=== PATIENT | male | born 1930 | race Caucasian/White ===

== ENCOUNTER → 2016-10-13 | Outpatient (CLI) | payer MEDICARE, MEDICAID ==
[~2016-10-13] MED LIST: FLOMAX0.4 MG PO
== END | disposition disaster alternative care site (69) ==
LOC: GRAD 15:31
DX: R06.02 Shortness of breath (principal); J98.9 Respiratory disorder, unspecified; J92.9 Pleural plaque without asbestos; J98.09 Other diseases of bronchus, not elsewhere classified; I70.90 Unspecified atherosclerosis; K44.9 Diaphragmatic hernia without obstruction or gangrene

== ENCOUNTER 2017-01-15 18:21 | Inpatient (IN) | payer MEDICARE, MEDICAID, OTHER ==
[~2017-01-15] VITALS: Ht 167.6 cm; Wt 54.6 kg
--- NOTE | ~2017-01-15 | CON ---
PATIENT'S NAME: ROSITA MARKS [facility] AGE: 87 Y [address] ROOM: [address] [address] LOCATION: GPCU ADMIT DATE: 01/15/2017 Consultation DISCHARGE DATE: 01/26/2017 FAMILY PHYSICIAN: Physician, Unknown ATTENDING PHYSICIAN: Olga Bañuelos DATE OF CONSULTATION: 01/18/2017 REFERRING PHYSICIAN: Samantha Devine MD CHIEF COMPLAINT: Palliative care referral for goals of care conversation. HISTORY OF PRESENT ILLNESS: The patient is an 87-year-old male who is admitted with a 3-4 day history of weakness and difficulties with ADLs as well as a one month history of increasing shortness of breath. The patient has a history of BPH and COPD. He is a lifelong smoker. He lives at home alone with a stepson who checks in from time to time. He is still driving some on his own as well as cooking and trying to manage his house. His family has been trying to get some help through [facility]. The patient generally follows with Dr. Goddard, but per his notes, the patient is not very compliant with his medications. During this hospitalization, the patient has been found to be anemic and be in acute congestive heart failure. The patient also states multiple times during my visit that he just wants to go home and does not want any of this done. Given this, Palliative Care has been consulted to assist with goals of care conversation. PREVIOUS OPERATIONS: Prostate surgery. PAST MEDICAL HISTORY: 1. COPD. 2. BPH. MEDICATIONS: Flomax 0.4 mg p.o. daily. ALLERGIES: NO KNOWN ALLERGIES. SOCIAL HISTORY: The patient is . No alcohol use. He is a lifelong smoker. He has a stepson who lives nearby and assists with cares as needed. FAMILY HISTORY: PATIENT'S NAME: ROSITA MARKS [facility] AGE: 87 Y [address] ROOM: [id number] [place] [id number] LOCATION: GPCU ADMIT DATE: 01/15/2017 Consultation DISCHARGE DATE: 01/26/2017 FAMILY PHYSICIAN: , Unknown ATTENDING PHYSICIAN: Olga Bañuelos His mother of a heart attack, and his father of alcohol abuse. REVIEW OF SYSTEMS: GENERAL: Appetite has been down. Family reports there has been some weight loss, but they are not aware of the amount. Positive for fatigue. Denies fever, chills, or night sweats. HEENT: No changes in vision or hearing. No headaches. No sinus congestion. RESPIRATORY: Reports shortness of breath at rest and reports this is his baseline. Reports that his shortness of breath is almost near his baseline currently. He does get increasingly short of breath with activity and takes a few minutes to recover. CARDIOVASCULAR: Denies chest pain, pressure. He does occasionally have palpitations. Denies orthopnea. No peripheral edema. GASTROINTESTINAL: No nausea, vomiting. No diarrhea but has issues with chronic constipation. No blood in the stool. No difficulties chewing or swallowing. GENITOURINARY: At times has problems starting his stream. Denies dysuria. MUSCULOSKELETAL: No joint swelling or back pain, has had a couple falls. No injuries. Does use a cane, sometimes a walker to get around at home. NEUROLOGICAL: Denies numbness or tingling. No dizziness, syncope, or seizures. INTEGUMENTARY: No rashes or open areas. HEMATOLOGICAL: No new bruising or bleeding. PSYCHIATRIC: Denies feeling overtly depressed or anxious. Denies insomnia. PHYSICAL EXAMINATION: VITAL SIGNS: Blood pressure 120/55, heart rate 83, temperature 98.0, respirations 24, O2 saturation 92% on 2 L. GENERAL: Reveals a frail-appearing elderly white male who is lying in the hospital bed, does not appear to be in any acute distress. He is alert and oriented x3. HEENT: Normocephalic, atraumatic. Pupils are equal and reactive to light. Sclerae are nonicteric. Conjunctivae pink. Tongue and mucous membranes are moist and pink. CARDIOVASCULAR: Heart tones are irregularly irregular. I am able to note a murmur. RESPIRATORY: Respirations are regular and nonlabored at rest. Lung sounds, there are few crackles at the bases. GASTROINTESTINAL: Abdomen is soft and nontender. Bowel sounds are present. No masses or organomegaly. MUSCULOSKELETAL: No significant joint deformities. Peripheral pulses are 1+ bilaterally. No clubbing, cyanosis, or edema. SKIN: Warm and dry. No unusual lesions or rashes. NEUROLOGICAL: Grossly intact. MENTAL STATUS: Unremarkable. PSYCHIATRIC: Appropriate mood and affect for situation. PATIENT'S NAME: SELINA, ROSITA R [facility] AGE: 87 Y [address] ROOM: [id number] [place], [place] [address] LOCATION: GPCU ADMIT DATE: 01/15/2017 Consultation DISCHARGE DATE: 01/26/2017 FAMILY PHYSICIAN: Physician, Unknown ATTENDING PHYSICIAN: Olga Bañuelos IMPRESSION AND PLAN: 1. Weakness: PT, OT, and cardiac rehab are on board. 2. Fatigue. 3. Code status. The patient is a full code. Did discuss code status with the patient, and he states that if his heart stops to let God have him, do not keep me alive on machines, but given the fact that he most likely will plan to have a colonoscopy as well as a possible heart catheterization during this hospitalization, will leave as a full code until after these procedures. The patient tells me that he just recently completed an advance directive and ndure-by-eernixxg paperwork with the [facility] on [facility], and I have asked him to have his family bring a copy so that we can place it on his chart. 4. Discussed with the patient and his xonibaaodsjn-ip-kaq, Lisandra, his multiple comorbidities as well as the proposed procedures to include a colonoscopy and/or a heart catheterization. We discussed the risks, benefits, and alternatives to these given his advancing age and comorbidities. Also discussed with the patient the importance of med compliance should he choose to have these procedures or not versus more of a medical management approach where he would still need to be medicine compliant. Discussed with the patient and his family, home health care at home and [facility] as well as briefly discussed what hospice services would be like. Also talked about the possibility of needing a short stay at a residential facility, though the patient is very adamant that he just wants to go home. Also discussed and provided education to the patient on disease exacerbation as well as disease trajectory over time and how things would look for him. At this point, the patient is not sure that he wants to undergo any procedures and wants to visit more with his family in regard to this. We will plan to follow up in the next day or so on further goals of care conversation with the patient and his family. I answered the patient and family's questions to their satisfaction. The patient reports that his primary goal is to get back home to his dog. Total visit was 75 minutes, greater than 50% of this time was spent providing education and counseling on comorbidities, disease process, and goals of care. Thank you for allowing me assist this patient and family. ALMA ROSA MIT[employer] SAFETY PROGRAM COORDINATOR FOR MAGALI APNIAGUA MD DLS/modl PATIENT'S NAME: ROSITA MARKS [facility] AGE: 87 Y [address] ROOM: [place] [address] [facility] ADMIT DATE: 01/15/2017 Consultation DISCHARGE DATE: 01/26/2017 FAMILY PHYSICIAN: Physician, Unknown ATTENDING PHYSICIAN: Olga Bañuelos /[id number] d: 01/26/171939 t: 02/01/17 1336, CONSULTATION REPORT
--- NOTE | ~2017-01-15 | ECHO ---
Transthoracic Echocardiography Report (TTE) Demographics Patient Name ROSITA MARKS Date of Study 01/16/2017 Patient Number [id number] Visit Number [id number] Date of 1930 Room Number G6331 Gender Male Number Age 87 year(s) Referring Sausage Machine Operator Gema RVT, RDCS Physician Ernestina Physician Interpreting Sybil Singh MD Chemicals Distiller Physician Supervising Ordering Sarmad Woods MD, MD/MLP Physician Nurse Stress Animal Husbandry Teacher Conclusions Contractility Score Summary Hypokinesis of the Mid anterior, the Mid troy-septal, the Apical septal and the Apical anterior segments. Summary The estimated left ventricular ejection fraction is 35%.Moderate asymmetric septal left ventricular hypertrophy.Normal internal dimension.There is severe inferior hypokinesia.Rest of LV is moderately hypokinetic. Mild biatrial dilatation with increased LA and RA pressures. Mild RV hypokinesis. Mild-moderate mitral regurgitation by color Doppler. There is mild aortic stenosis by the Continuity Equation. The peak velocity is 2.04 m/s, the mean gradient is 12 mmHg, and the valve area based on the continuity equation is 1.27 cm2. Moderate tricuspid regurgitation by color Doppler. There is severe pulmonary hypertension. The pulmonary pressure (RVSP) is 67 mmHg. TDS with off axis views. Procedure Type of Study TTE procedure:2D Echocardiogram, M-Mode, Doppler , Color Doppler. Procedure Date Date: 01/16/2017 Start: 08:57 AM Study Location: Inpatient Portable Technical Quality: Adequate visualization Indications:Shortness of breath. Additional Indications:non -stemi Appropriate Use Criteria: 9 Patient Status: Routine HR: 92 bpm BP: 148/70 mmHg M-Mode/2D Measurements LV Diastolic Dimension: 4.55 cm LV Systolic Dimension: 3.66 cm LV Septum Diastolic: 1.77 cm LV PW Diastolic: 1.36 cm AO Root Dimension: 2.9 cm Cardiac Output: 3.95 l/min AV Cusp Separation: 1.2 cm RV Diastolic Dimension: 2.2 cm LA volume: 41 ml LVOT: 2.1 cm RV Base: 3.63 cm LVOT VTI: 12.4 cm RV Mid: 3.39 cm LV Stroke volume: 42.93 ml TAPSE: 1.77 cm TDI-S': 11.3 cm/s Doppler Measurements AV Peak Velocity: 2.04 m/s MV Peak E-Wave: 1.32 m/s AV Peak Gradient: 16.65 mmHg MV Peak A-Wave: 0.75 m/s AV Mean Gradient: 12 mmHg MV E/A Ratio: 1.77 LVOT Peak Velocity: 0.61 m/s MV P1/2t: 49 msec TR Gradient:60.22 mmHg PV Peak Velocity: 0.89 m/s Estimated RAP:7 mmHg PV Peak Gradient: 3.15 mmHg Estimated RVSP: 67 mmHg Estimated PASP: 67.22 mmHg E' Septal Velocity: 0.06 m/s A' Septal Velocity: 0.04 m/s E' Lateral Velocity: 0.08 m/s A' Lateral Velocity: 0.05 m/s Findings Left Ventricle Moderate asymmetric septal left ventricular hypertrophy.Normal internal dimension,WM and EF. Right Ventricle Normal right ventricle structure and mildly reduced function. Left Atrium The left atrium is mildly dilated. Increased LA pressures. Right Atrium The right atrium is mildly dilated. Increased RA pressures. Mitral Valve Mild-moderate mitral regurgitation by color Doppler. Aortic Valve The aortic valve is moderately sclerotic. There is mild aortic stenosis by the Continuity Equation. The peak velocity is 2.04 m/s, the mean gradient is 12 mmHg, and the valve area based on the continuity equation is 1.27 cm2. Tricuspid Valve Moderate tricuspid regurgitation by color Doppler. There is severe pulmonary hypertension. The pulmonary pressure (RVSP) is 67 mmHg. Pulmonic Valve Normal pulmonic valve structure and function. Pericardial Effusion No evidence of pericardial effusion. Miscellaneous Visualized portions of the aortic root and ascending aorta appear normal in size. Pleural Effusion No evidence of pleural effusion. Contractility Score LV regional wall motion:(0-Non visualized 1-Normal 2-Hypokinesis 3-Akinesis 4-Dyskinesis 5-Aneurysm) Signature dtt: Samantha Devine dtd: 01/16/17 0857 Physician Self Edit
--- NOTE | ~2017-01-15 | HP ---
PATIENT'S NAME: ROSITA MARKS [facility] AGE: 87 Y [address] ROOM: [place] [address] LOCATION: GPCU ADMIT DATE: 01/15/2017 History & Physical DISCHARGE DATE: FAMILY PHYSICIAN: PHYSICIAN, UNKNOWN ATTENDING PHYSICIAN: MARV LI DATE OF SERVICE: CHIEF COMPLAINT: Feeling weak. HISTORY OF PRESENT ILLNESS: This is an 87-year-old gentleman with a past medical history of BPH and chronic respiratory failure diagnosed in the past, not much records available, presented to the emergency department by private vehicle stating that he has been feeling weak for past three or four days, unable to do his ADLs, no specific weakness mentioned in any of the extremities, associated with some baseline shortness of breath; did not complain of any chest pain, any palpitation, any cough; did endorse having dizziness sometimes not associated with fever, chills, any diarrhea, or constipation. Does endorse having abdominal pain which he states has been there for many many weeks now. He said that he has been urinating okay, no burning reported. Did not report any swelling in the legs. He is not one of the greatest historians. REVIEW OF SYSTEMS: All other systems were reviewed and were negative except as mentioned in the HPI. ALLERGIES: NO KNOWN DRUG ALLERGIES. PAST MEDICAL HISTORY: 1. BPH. 2. Chronic respiratory failure secondary to COPD. MEDICATIONS: Terazosin. FAMILY HISTORY: Negative for any coronary artery disease. SOCIAL HISTORY: A lifelong smoker. No alcohol or drug abuse. [place]. PATIENT'S NAME: ROSITA MARKS [facility] AGE: 87 Y [address] ROOM: [address] [address] LOCATION: GPCU ADMIT DATE: 01/15/2017 History & Physical DISCHARGE DATE: FAMILY PHYSICIAN: PHYSICIAN, UNKNOWN ATTENDING PHYSICIAN: MARV LI PHYSICAL EXAMINATION: VITAL SIGNS: Blood pressure 149/77, respiratory rate of 20, saturating 94% on 1 to 2 L of oxygen, afebrile. GENERAL: No acute distress. Alert and oriented x3. HEENT: Head; atraumatic, normocephalic. Eyes; some erythema noted around the eye which he said is chronic. Oral cavity, mucous membranes moist. CARDIOVASCULAR: S1 and S2. No murmurs, gallops, or rubs. LUNGS: Bilateral crackles up to mid lung field. ABDOMEN: Soft, nontender, nondistended. Bowel sounds present. EXTREMITIES: Trace edema on the right side. PSYCH: Normal affect, mood, and speech. NEURO: Cranial nerves 2 through 12 intact. No motor or sensory deficit. SKIN: No blemishes or rashes noted. MUSCULOSKELETAL: No muscle tenderness or joint swelling noted. ENDOCRINE: No thyromegaly or lymphedema noted. LABORATORY AND IMAGING DATA: Chest x-ray was done in the emergency department which did show cardiomegaly as well as some vascular congestion more on the right side than the left side. EKG was done, which showed normal sinus rhythm, with no acute ST-T wave changes and poor R-wave progression in the anterior lead. Very interestingly, his troponin on the presentation was 0.7 which jumped in 2 hours to 1.2. ProBNP was elevated at 33,000. CPK level was 427 and 375. CBC was remarkable for hemoglobin of 8.2, with MCV of 87. BUN 47, creatinine 1.7, potassium 4.5. AST and ALT elevated at 451 and 468. ESR 34. INR is 1.5. UA is negative. EGFR of 36. ASSESSMENT: 1. Acute hypoxic respiratory failure. 2. Acute congestive heart failure. 3. Acute coronary syndrome. 4. Anemia, likely iron deficiency. 5. Acute kidney injury. 6. Increased liver enzymes. 7. Chronic respiratory failure. 8. Chronic obstructive pulmonary disease. PLAN: We are going to admit this patient. We did a bedside ultrasonography which did reveal reduced ejection fraction with dilated RV as well as LV. Dilatation of the both RA and LA was also noted. IVC is dilated, with poor inspiratory collapse. He looks like he is in florid heart failure. We will start diuresing this gentleman at this point. He will need a full echocardiography in the morning. No heparin will be instituted at this point PATIENT'S NAME: ROSITA MARKS [facility] AGE: 87 Y [address] ROOM: [place] [address] LOCATION: [facility] ADMIT DATE: 01/15/2017 History & Physical DISCHARGE DATE: FAMILY PHYSICIAN: PHYSICIAN, UNKNOWN ATTENDING PHYSICIAN: MARV LI because of the anemia. Cardiology consultation will be obtained. Anemia workup will be started. He never had his colonoscopy done. We will consult GI after the confirmation of iron deficiency anemia. We will monitor urine lytes. I think his renal failure is secondary to cardiorenal. His liver enzymes are elevated secondary to congestion of the liver. We are going to monitor this gentleman. He has high risk of deterioration in terms of his cardiovascular as well as respiratory status. I spent one hour in taking care of this patient, which involved direct patient care; history and physical; bedside ultrasonography; explaining the condition, prognosis, and the workup. The patient was very resistant to get admitted to the hospital. The patient is full code. MD USMAN HEATON/andressa /[id number] D: [id number] T: [id number] HISTORY & PHYSICAL
--- NOTE | ~2017-01-15 | DS ---
PATIENT'S NAME: ROSITA MARKS [facility] AGE: 87 Y [address] ROOM: [place] [address] LOCATION: GPCU ADMIT DATE: 01/15/2017 Discharge Summary DISCHARGE DATE: 01/26/2017 FAMILY PHYSICIAN: Physician, Unknown ATTENDING PHYSICIAN: Olga Bañuelos PRIMARY DIAGNOSES: 1. Non ST-elevation myocardial infarction. 2. Pmaga-pu-vknmlav hypoxic and hypercapnic respiratory failure. 3. Uzrrc-xd-kgfkyje systolic congestive heart failure. 4. Severe iron deficiency anemia. 5. Acute kidney injury. 6. Generalized weakness. 7. Benign prostatic hyperplasia. 8. Essential hypertension. 9. Paroxysmal atrial fibrillation. OPERATIONS OR PROCEDURES: CT scan of the abdomen and pelvis on 01/16/2017 demonstrated left renal cysts, emphysematous changes at the bases of the lungs with bilateral pleural thickening, no acute intraabdominal findings. Echocardiogram performed on 01/16/2017 revealed an ejection fraction of 35%, moderate biatrial dilatation, mild aortic stenosis, and severe pulmonary hypertension with an RVSP of 67 mmHg. HISTORY OF PRESENTING ILLNESS AND REASON FOR ADMISSION: Please refer to the H and P dictated on 01/15/2017. HOSPITAL COURSE: The patient was admitted to the hospital as noted above with a presumptive diagnosis of ifoai-we-hccxbpo hypoxic respiratory failure. He was found to have atrbb-sv-ntsdqme congestive heart failure. He did have paroxysms of atrial fibrillation over the course of his hospital stay. Non-ST elevation UT was identified. Cardiology was consulted. Gastroenterology was also consulted. The patient was found to have severe iron deficiency anemia. He did receive IV iron supplementation. His medical therapy was optimized. Eventually and after consultation with Cardiology, it was decided not to pursue intervention. He was recommended for medical management. Palliative Care was also involved and there was some consideration for hospice care. The patient requested no further interventions and no further hospitalizations. PATIENT'S NAME: ROSITA MARKS [facility] AGE: 87 Y [address] ROOM: [place] [address] LOCATION: GPCU ADMIT DATE: 01/15/2017 Discharge Summary DISCHARGE DATE: 01/26/2017 FAMILY PHYSICIAN: , Unknown ATTENDING PHYSICIAN: Olga Bañuelos With the assistance of care management, arrangements were made for him to be discharged to nursing facility for skilled care and restorative cares, but no further hospitalization. The patient expressed that if his condition were to deteriorate, he would want for hospice care. DISCHARGE INSTRUCTIONS: DIET: Cardiac prudent as tolerated. ACTIVITY: As tolerated. MEDICATIONS: 1. Aspirin 325 mg p.o. daily. 2. Atorvastatin 40 mg p.o. at bedtime. 3. Protonix 40 mg p.o. daily. 4. Metoprolol 12.5 mg p.o. b.i.d. 5. Lasix 20 mg p.o. q.a.m. 6. Spironolactone 25 mg p.o. daily. 7. Flomax 0.4 mg p.o. daily. 8. DuoNeb b.i.d. and q.4 hours p.r.n. 9. Acetaminophen 650 mg p.o. q.4 hours p.r.n. pain or fever. FOLLOWUP: He will follow up with Dr. Devine in 2 weeks and continued followup by Palliative Care at the senior living. He will follow up with his primary care provider in 7 to 10 days. CONDITION ON DISCHARGE: Fair. Total time spent on discharge process 45 minutes. MD KANDI BONILLA/andressa /[id number] d: 01/27/17 0358 t: 01/30/17 1725, DISCHARGE SUMMARY
--- NOTE | ~2017-01-15 | CON ---
PATIENT'S NAME: ROSITA MANRIQUEZ [facility] AGE: 87 Y [address] ROOM: [place] [address] LOCATION: GPCU ADMIT DATE: 01/15/2017 Consultation DISCHARGE DATE: FAMILY PHYSICIAN: PHYSICIAN, UNKNOWN ATTENDING PHYSICIAN: MARV LI DATE OF CONSULTATION: 01/16/2017 REFERRING PHYSICIAN: Samantha Devine MD This is a patient of hospitalist. Dear Colleagues: Thank you for asking me to see Mr. Manriquez who was brought in by his stepson to the hospital because he has been weak for the past 4 days. He lives alone and has been noticing worsening shortness of breath for about a month or so. For the past two weeks, he has noticed some aches in his arms bilaterally and he thought that is from laying on the shoulders. They seem to come and last him some couple hours and spontaneously resolved. He has no other chest pains, but his troponins were elevated and his EKG showed that he was in atrial fibrillation with variable ventricular response and left bundle-branch block. That is the main reason for consultation. He has also been progressively getting weaker and much worse in the last four days. He has been in functional class III for the past month or so. He denies any paroxysmal nocturnal dyspnea or orthopnea. He has some intermittent lightheadedness and dizziness, which are short lived. He has never had a syncopal spell. There is no history of palpitations or ankle swelling. The patient denies hypertension or diabetes. His cholesterol apparently is not increased. He smokes two packs a month. There is no family history of premature coronary artery disease. He denies VT or angina or nitroglycerin use. He denies rheumatic fever, heart murmur, heart failure. He thinks that his heart has been in atrial fibrillation for the past month or so. MEDICATIONS: Tamsulosin 0.4 mg a day. ALLERGIES: NONE. PATIENT'S NAME: ROSITA MANRIQUEZ [facility] AGE: 87 Y [address] ROOM: [place] [address] LOCATION: GPCU ADMIT DATE: 01/15/2017 Consultation DISCHARGE DATE: FAMILY PHYSICIAN: PHYSICIAN, UNKNOWN ATTENDING PHYSICIAN: KHALID,FAIR A PAST MEDICAL HISTORY: Hernia surgery. SOCIAL HISTORY: The patient is a cabinetmaker. He is . He denies abusing alcohol or recreational drugs. His appetite is good. Weight stays about the same. Sleep is poor. FAMILY HISTORY: No premature coronary artery disease. REVIEW OF SYSTEMS: A 12-point review of systems revealed the following positives. 1. Sinus drainage. 2. Corrective lenses. 3. Wheezing. 4. CKD with nocturia x4. PHYSICAL EXAMINATION: VITAL SIGNS: His blood pressure is 130s/80s, heart rate is in the 80s and irregular, respirations 18, afebrile. HEENT: Normal. NECK: Supple with no JVD, thyromegaly, lymphadenopathy, or carotid bruit. PMI is not well located. First and second heart sounds are irregular. There are no added sounds or murmurs. CHEST: Clear to auscultation. ABDOMEN: Soft and nontender. EXTREMITIES: Reveal no edema. CENTRAL NERVOUS SYSTEM: Intact. ASSESSMENT: An 87-year-old male patient with non ST-segment elevation VT. His EF today by echocardiogram is 35%. RECOMMENDATION: Low-dose diuresis. Put him on aspirin and heparin. His hemoglobin is 8.2, so we will watch his Hemoccult stools and his hemoglobin closely. We will check his bladder scan for residual urine. He may need cardiac catheterization, but overall, he seems fairly weak and I am not sure how far he wants to take this. In the meantime, I will maximize his medications. Given his wall motion abnormalities, this is most likely coronary artery disease related congestive heart failure. Again, I appreciate this opportunity to participate in the care of Mr. Manriquez. PATIENT'S NAME: ROSITA MANRIQUEZ [facility] AGE: 87 Y [address] ROOM: [place] [address] [facility] AD[facility] DATE: 01/15/2017 Consultation DISCHARGE DATE: FAMILY PHYSICIAN: PHYSICIAN, UNKNOWN ATTENDING PHYSICIAN: MARV LI MD KELSEA CANNON/andressa /[id number] d: 01/17/17 0055 t: 01/17/17 08, CONSULTATION REPORT
--- NOTE | ~2017-01-15 | ER ---
PATIENT'S NAME: ROSITA MARKS [facility] AGE: 87 Y [address] ROOM: [place] [id number] LOCATION: GPCU ADMIT DATE: 01/15/2017 ER/Outpatient Report DISCHARGE DATE: FAMILY PHYSICIAN: PHYSICIAN, UNKNOWN ATTENDING PHYSICIAN: MARV BAÑUELOS Time of Arrival: Admission date and time documented on the medical record. Time of Evaluation: I saw the patient at 1840 hours. CHIEF COMPLAINT: Generalized weakness, nausea, and abdominal pain. HISTORY OF PRESENT ILLNESS: The patient is an 87-year-old male, who over the past 3 days has had increasing generalized weakness. He has had some nausea, but no vomiting. Had 1 diarrhea stool. Denies any blood in the stool or black tarry stools. No constipation. Does have some kind of vague generalized abdominal pain. No chest pain or shortness of breath. No headache or eyes, ears, nose, throat, neck, or spine pain. No fall or trauma. No recent cough, cold, flus, fever, chills, or sweats. No lightheadedness, dizziness, syncope, or near syncope. No joint or muscle swelling, redness, or pain. No skin eruptions or rash. No history of neuro changes, psych issues, or endocrine problems. HOME MEDICATIONS: See attached medication list. ALLERGIES: NONE. SOCIAL HISTORY: The patient smokes a pack of cigarettes every couple of weeks. Nondrinker. SIGNIFICANT PAST MEDICAL HISTORY: Hypertension, tobacco and alcohol abuse, pneumonia, benign prostatic hypertrophy, hyponatremia, sepsis, and COPD. OPERATIONS: Herniorrhaphy x2. REVIEW OF SYSTEMS: All systems reviewed by me are negative with the exception of those discussed in the history of present illness. PHYSICAL EXAMINATION: VITAL SIGNS: Temperature 97.7, tympanic; pulse 96; respirations 20; blood PATIENT'S NAME: ROSITA MARKS [facility] AGE: 87 Y [address] ROOM: [address] [address] LOCATION: GPCU ADMIT DATE: 01/15/2017 ER/Outpatient Report DISCHARGE DATE: FAMILY PHYSICIAN: PHYSICIAN, UNKNOWN ATTENDING PHYSICIAN: MARV BAÑUELOS pressure 133/68; and O2 saturation on room air is 95%. HEAD: Normocephalic. EYES, EARS, NOSE, AND THROAT: Clear. Mucous membranes little dry. NECK: No nuchal rigidity. No thyromegaly or cervical adenopathy. No tenderness. SPINE: Nontender. No deformity. LUNGS: Decreased breath sounds diffusely, some basilar rales. HEART: Regular. Pulses are palpable. The patient is mildly tachypneic. ABDOMEN: Soft. Some tenderness in the right upper quadrant over the liver area. No organomegaly or abnormal masses palpable. No true guarding or rigidity. No rebound tenderness. Bowel tones present. No CVA tenderness. EXTREMITIES: No peripheral edema, cyanosis, or deformity. NEUROVASCULAR: Intact. SKIN: Clear. No skin eruptions or rash. Does have some bruising around the right eye. He did kind of trip and fall injuring his right periorbital area several days ago. LABORATORY DATA AND X-RAYS: EKG x2, 2 hours apart showed sinus rhythm. Occasional ectopic, poor R-wave progression suggestive of some anterior LAD problems. Chest x-ray shows cardiomegaly, increased vascular congestion with some chronic scarring. We will review x-ray with the radiologist. Laboratory: Urine shows 0 to 2 whites, negative reds, rare epithelial cells, negative bacteria, negative nitrites on dipstick. CMS was normal except for an elevated glucose of 109, low calcium of 8.4, elevated BUN of 46, elevated creatinine of 1.7, low GFR of 36, AST was elevated at 451, ALT was elevated at 468. Magnesium was normal at 2.3. Amylase and lipase were normal. Acetone level was elevated at 8.1. CPK initially was elevated at 427, 2-hour CPK dropped to 375. CK-MB initially was 8.8, 2-hour CK-MB was 8.6. Troponin initially was 0.783, elevated to 1.24 after 2 hours. CRP was elevated at 2.18. Procalcitonin was 0.06. Lactate was 2.7. Free T4 and TSH were normal. ProBNP was elevated at 33,235. Venous pH was 7.4. EMERGENCY DEPARTMENT COURSE: Did give the patient some IV fluids, which did increase his alertness. We did shut it down when we found that he had some congestive heart failure pattern and low cardiac output. IMPRESSION: 1. Acute coronary syndrome. Possible vnh-GY-skturdeoy myocardial infarction. The patient has elevated cardiac enzymes, CK-MB and troponin. 2. Congestive heart failure. The patient has cardiomegaly and increased vascular congestion on chest x-ray. His BNP is 33,000. He has elevated PATIENT'S NAME: ROSITA MARKS [facility] AGE: 87 Y [address] ROOM: [place] [address] LOCATION[facility] ADMIT DATE: 01/15/2017 ER/Outpatient Report DISCHARGE DATE: FAMILY PHYSICIAN: PHYSICIAN, UNKNOWN ATTENDING PHYSICIAN: MARV BAÑUELOS liver enzymes. 3. Acute kidney failure with elevated BUN, creatinine and low GFR. 4. Chronic obstructive pulmonary disease with some respiratory failure. The patient does have a history of tobacco abuse. 5. Anemia with a hemoglobin of 8.2 and a hematocrit of 25.9. Etiology uncertain at this time. 6. Elevated pro-time, INR. 7. History of hypertension. 8. History of tobacco and alcohol abuse. 9. Past history of sepsis. 10. History of benign prostatic hypertrophy. PLAN: I did discuss this patient with Dr. Bañuelos, hospitalist. Dr. Bañuelos came down to the emergency room to evaluate the patient. We will admit the patient for inpatient hospital admission. The patient will be admitted for further evaluation and treatment, especially for his anemia, heart problems, acute kidney failure and his respiratory problems. Discussion ensued with the patient concerning my findings and recommendation, he understands. Accumulated critical care time 40 minutes. MD LUISA VALADEZ/modl /[id number] d: 01/16/17154 t: 01/16/[id number], OUTPATIENT REPORT
--- NOTE | ~2017-01-15 | CON ---
PATIENT'S NAME: LIU MANRIQUEZ [facility] AGE: 87 Y [address] ROOM: [place] [address] LOCATION: GPCU ADMIT DATE: 01/15/2017 Consultation DISCHARGE DATE: FAMILY PHYSICIAN: PHYSICIAN, UNKNOWN ATTENDING PHYSICIAN: MARV LI DATE OF CONSULTATION: 01/16/2017 REFERRING PHYSICIAN: Samantha Devine MD REASON FOR CONSULT: Anemia. HISTORY OF PRESENT ILLNESS: Liu Manriquez is an 87-year-old male who was admitted through emergency room in view of generalized weakness and increasing shortness of breath. The patient was found to be anemic with a low hemoglobin of around 8. Therefore, GI consult was requested. The patient denies any obvious problems with melena, rectal bleeding, or dysphagia. The patient is a very poor historian and was also found to have emphysema, cardiomegaly, and high troponin values, as well as Rapid Response was called in view of uncontrolled atrial fibrillation. At the present time, he seems to be doing better and is tolerating his breakfast. He has not had any previous endoscopic evaluation. There is unspecific amount of weight loss. PAST MEDICAL HISTORY: Benign prostatic hypertrophy and COPD. PAST SURGICAL HISTORY: None known. MEDICATIONS: Medications on admission included terazosin. Current medications are reviewed. SOCIAL HISTORY: Negative alcohol use. He does smoke cigarettes. [place] REVIEW OF SYSTEMS: Not available in view of the patient's poor communication and health issues. PHYSICAL EXAMINATION: GENERAL: An elderly, frail-looking man in no acute distress. Afebrile. VITAL SIGNS: Stable as noted in nurse's sheet. PATIENT'S NAME: LIU MANRIQUEZ [facility] AGE: 87 Y [address] ROOM: [place] [address] LOCATION: GPCU ADMIT DATE: 01/15/2017 Consultation DISCHARGE DATE: FAMILY PHYSICIAN: PHYSICIAN, UNKNOWN ATTENDING PHYSICIAN: MARV LI HEENT: Nonicteric sclerae. Pupils round and reactive. Atraumatic and normocephalic. NECK: Supple. No palpable nodes. No thyromegaly. CHEST: Bilateral crackles at the bases. HEART: S1 and S2 normal. ABDOMEN: Soft and nondistended without palpable masses. There is mild diffuse tenderness. RECTAL: Not done. NEUROLOGIC: Awake and alert without any focal deficit. EXTREMITIES: No edema. LABORATORY DATA: Chest x-ray and CT scan of the abdomen revealing cardiomegaly and changes of emphysema. Liver function tests are mildly elevated with AST of 450 and ALT of 460. Hemoglobin down to 8.2. MCV 87. Creatinine 1.7. ASSESSMENT AND PLAN: An 87-year-old male with multitude of comorbidities with high troponin values, cardiomegaly, emphysema, and associated anemia of unknown origin. The patient has not had any previous gastrointestinal evaluations; however, denies any obvious gastrointestinal symptoms, but is a very poor historian. I agree with further evaluation with upper and lower gastrointestinal endoscopy once his medical status has been stabilized. Thank you for this consult. JADE FITZGERALD MD AM/andressa /[id number] d: 01/16/17 1902 t: 01/31/17 1127, CONSULTATION REPORT
[2017-01-15 19:01] LABS: BICARBONATE 25.4 mmol/L (18.0-23.0); LACTATE 2.7 mEq/L (0.50-1.60); PCO2 41 mmHg (35-45); PO2 60 mmHg (80-90)
[2017-01-15 19:02] LABS: BASOPHIL % 0.5 %; EOSINOPHIL % 0.4 %; HEMATOCRIT 25.9 % (33.0-50.0); HEMOGLOBIN 8.2 g/dL (11.0-16.0); IMMATURE GRANULOCYTE % 0.5 %; LYMPHOCYTE # 1.5 K/uL (0.8-4.0); LYMPHOCYTE % 18.4 %; MCH 27.7 pg (27.0-34.0); MCHC 31.7 gm/dL (32.0-36.5); MCV 87.5 fl (83.0-98.0); MONOCYTE % 11.8 %; MPV 10.2 fl (9.4-12.4); NEUTROPHIL # (ANC) 5.6 K/uL (1.4-9.0); NEUTROPHIL % 68.4 %; NRBC % 0.2 /100WBC (0-0.00); PLATELET COUNT 230 K/uL (150-450); RBC 2.96 M/uL (3.50-5.50); RDW-CV 15.1 % (11.9-14.6); WBC 8.2 K/uL (4.0-11.0)
[2017-01-15 19:09] LABS: INR - (THERAPEUTIC) 1.52 (0.92-1.07); PTT 28 SECONDS (25-32)
[2017-01-15 19:22] LABS: ALBUMIN 3.3 gm/dL (3.5-5.0); CALCIUM 8.4 mg/dL (8.5-10.5); CREATININE 1.7 mg/dL (0.6-1.3); TOTAL BILIRUBIN 1.2 mg/dL (0.0-1.5); TOTAL PROTEIN 6.4 g/dL (6.0-8.4)
[2017-01-15 19:23] LABS: ANION GAP 14.5 (10.0-19.0); MAGNESIUM 2.3 mg/dL (1.8-2.6); POTASSIUM 4.5 mMol/L (3.7-5.1)
[2017-01-15 19:28] LABS: BILIRUBIN URINE NEGATIVE (NEGATIVE); BLOOD URINE NEGATIVE /UL (NEGATIVE); COLOR URINE YELLOW (YELLOW); GLUCOSE URINE NEGATIVE (NEGATIVE); KETONE URINE 5 mg/dL (NEGATIVE); LEUKOCYTES URINE 25 /UL (NEGATIVE); NITRITE URINE NEGATIVE (NEGATIVE); PROTEIN URINE 30 mg/dL (NEGATIVE); SPEC GRAVITY URINE 1.025 (1.003-1.035); TURBIDITY URINE CLEAR (CLEAR); UROBILINOGEN URINE 1 mg/dL (NORMAL)
[2017-01-15 19:34] LABS: BACTERIA URINE NEGATIVE (NEGATIVE); EPITHELIAL URINE RARE #/HPF (NEGATIVE); RBC URINE NEGATIVE #/HPF (NEGATIVE); WBC URINE 0-2 #/HPF (NEGATIVE)
[2017-01-15] MEDS ORDERED: FLOMAX0.4 MG PO (23:01)
[2017-01-16 01:58] LABS: BASOPHIL # 0.1 K/uL (0.0-0.2); BASOPHIL % 0.5 %; EOSINOPHIL % 0.2 %; HEMATOCRIT 25.8 % (33.0-50.0); HEMOGLOBIN 8.2 g/dL (11.0-16.0); IMMATURE GRANULOCYTE % 0.2 %; LYMPHOCYTE # 1.7 K/uL (0.8-4.0); MCH 28.5 pg (27.0-34.0); MCHC 31.8 gm/dL (32.0-36.5); MCV 89.6 fl (83.0-98.0); MONOCYTE # 1.1 K/uL (0.0-1.0); MONOCYTE % 11.1 %; MPV 10.1 fl (9.4-12.4); NEUTROPHIL # (ANC) 6.6 K/uL (1.4-9.0); NRBC % 0 /100WBC (0-0.00); PLATELET COUNT 207 K/uL (150-450); RBC 2.88 M/uL (3.50-5.50); RDW-CV 15.3 % (11.9-14.6); WBC 9.4 K/uL (4.0-11.0)
[2017-01-16 02:10] LABS: ANION GAP 14.3 (10.0-19.0); CALCIUM 8.3 mg/dL (8.5-10.5); CREATININE 1.8 mg/dL (0.6-1.3); POTASSIUM 4.3 mMol/L (3.7-5.1)
--- NOTE | 2017-01-16 05:27 | NUR ---
Patient admitted for NSTEMI. He reported feeling weak for the last few days and had a fall 4 days ago. He had one episode of diarrhea and reported feeling significantly weaker afterwards, so his stepson brought him to the ED. His cardiac enzymes were elevated but EKG was normal. He denied any chest pain. He was given 1L fluid bolus in ED. He is alert/oriented x3. NKDA. He lives at home by himself with his Rottweiler.
--- NOTE | 2017-01-16 05:30 | NUR ---
rSignificant Event: Patient is alert/oriented x3. Around 0130, patient stood up to use the urinal and then laid back in bed. At that time, his HR's went up as high as 206 and sustained > 150. Rapid response was initiated. EKG showed atrial fibrillation with RVR. Patient was asymptomatic during the entire episode. He was started on a cardizem drip at 5 mg/min and within 10 min he converted back to sinus rhythm. Dr. Bañuelos notified regarding rhythm change and he ordered to turn off cardizem drip. Cardizem drip has been off since 224. Otherwise, other vital signs have been stable and patient denies any pain. Doshi catheter placed for accurate I/O's and for urinary retention. He was given one dose of baby ASA and x1 dose of 80 mg IVP Lasix. 800 mL UOP. Follow up: Cardiology and GI consult this AM.
--- NOTE | 2017-01-16 13:50 | NUR ---
Significant Event:A/O X 3. Repositions self in bed. SBP 140's started on Metoprolol 12.5 mg this afternoon. ECHO completed this AM. GI consult this AM. Plans to GI "scope some day but not in the hospital, because his heart is too sick." O2 > 90'% on . Fair appetite, "I don't like to eat much more than a couple of rolls and some coffee everyday." Encouraged PO Nutrition and PO fluids. Bag bath given. Ecchymosis to right eye noted. Hands cold. Doshi patent with adequate amounts out. NO BM. Follow up:Home with home health.
[2017-01-16 20:09] LABS: BASOPHIL % 0.2 %; EOSINOPHIL % 0.3 %; HEMATOCRIT 23.7 % (33.0-50.0); IMMATURE GRANULOCYTE % 0.4 %; LYMPHOCYTE # 0.9 K/uL (0.8-4.0); LYMPHOCYTE % 9.2 %; MCV 88.8 fl (83.0-98.0); MONOCYTE % 10.1 %; MPV 10.1 fl (9.4-12.4); NEUTROPHIL # (ANC) 7.6 K/uL (1.4-9.0); NEUTROPHIL % 79.8 %; NRBC % 0.2 /100WBC (0-0.00); RBC 2.67 M/uL (3.50-5.50); RDW-CV 15.5 % (11.9-14.6); WBC 9.6 K/uL (4.0-11.0)
[2017-01-16 20:19] LABS: HEMOGLOBIN 7.6 g/dL (11.0-16.0); MCH 28.5 pg (27.0-34.0); MCHC 32.1 gm/dL (32.0-36.5); PLATELET COUNT 160 K/uL (150-450)
[2017-01-16 20:29] LABS: INR - (THERAPEUTIC) 1.39 (0.92-1.07); PROTIME 14.6 SECONDS (9.8-11.4)
[2017-01-17 02:04] LABS: HEMATOCRIT 23.5 % (33.0-50.0); HEMOGLOBIN 7.4 g/dL (11.0-16.0)
[2017-01-17 02:17] LABS: ANION GAP 10.8 (10.0-19.0); CALCIUM 7.8 mg/dL (8.5-10.5); CREATININE 1.7 mg/dL (0.6-1.3); POTASSIUM 3.8 mMol/L (3.7-5.1)
--- NOTE | 2017-01-17 04:49 | NUR ---
Significant events: Pt A/Ox3. VSS. SBP 90-110's, HR 80's. Sinus rhythm. On 2L/NC. No complaints of pain. Up 1PA. Heparin gtt at 700units/hr. H&H Q6 hour. GI and cardiology following. Slept well this shift.
[2017-01-17 08:24] LABS: HEMATOCRIT 23.4 % (33.0-50.0)
[2017-01-17 08:25] LABS: HEMOGLOBIN 7.1 g/dL (11.0-16.0)
[2017-01-17 13:58] LABS: HEMATOCRIT 24.2 % (33.0-50.0)
[2017-01-17 13:59] LABS: HEMOGLOBIN 7.5 g/dL (11.0-16.0)
--- NOTE | 2017-01-17 15:44 | NUR ---
Introduced self and role of care management to pt. He lives outside of [place] by himself and his dog. He does have a step son and step daughter in law who check on him and sometimes help if needed. He tells me he uses a 4 point cane while at home. He still drives at times. He states he is not the best at cleaning house or making meals. I did ask if he has been in touch with Medicaid to see if he would qualify for chore providers or if been in touch with [employer] and he has not. I did discuss the need for assisted or SHELTER and he states he wants to go home. I did mention [facility] to start out with and called Ana with [facility]. WIll continue to follow.
--- NOTE | 2017-01-17 16:23 | NUR ---
Significant Event: A/O X 3. DENIES PAIN. AFEBRILE. SHORT OF BREATH WITH ACTIVITY. 02 AT 2 LPM NC. SATS 95%. HR SA WITH FREQ. PAC'S. RATES IN 62-81. SBP 109-125. CURRY PATENT, ORANGE/YELLOW URINE. APPETITE GOOD AT LUNCH. HBG 7.4. GIVEN 1 UNIT PRBC'S. PT/OT EVAL/TREAT. Follow up: CONT. TO MONITER RESP. AND GI STATUS.
[2017-01-17 20:02] LABS: HEMATOCRIT 28.9 % (33.0-50.0); HEMOGLOBIN 9.3 g/dL (11.0-16.0)
[2017-01-18 02:36] LABS: BASOPHIL % 0.3 %; EOSINOPHIL # 0.2 K/uL (0.0-0.5); EOSINOPHIL % 2.1 %; HEMATOCRIT 26.9 % (33.0-50.0); HEMOGLOBIN 8.6 g/dL (11.0-16.0); IMMATURE GRANULOCYTE # 0.1 K/uL (0.0-0.3); IMMATURE GRANULOCYTE % 0.5 %; LYMPHOCYTE # 1.8 K/uL (0.8-4.0); LYMPHOCYTE % 19.2 %; MCH 28.3 pg (27.0-34.0); MCV 88.5 fl (83.0-98.0); MONOCYTE % 10.1 %; MPV 10.7 fl (9.4-12.4); NEUTROPHIL # (ANC) 6.4 K/uL (1.4-9.0); NEUTROPHIL % 67.8 %; NRBC % 0.2 /100WBC (0-0.00); PLATELET COUNT 145 K/uL (150-450); RBC 3.04 M/uL (3.50-5.50); RDW-CV 15.1 % (11.9-14.6); WBC 9.4 K/uL (4.0-11.0)
[2017-01-18 02:54] LABS: ALBUMIN 2.5 gm/dL (3.5-5.0); ANION GAP 10.7 (10.0-19.0); CALCIUM 7.9 mg/dL (8.5-10.5); CREATININE 1.3 mg/dL (0.6-1.3); POTASSIUM 3.7 mMol/L (3.7-5.1); TOTAL PROTEIN 5.8 g/dL (6.0-8.4)
[2017-01-18 02:57] LABS: TOTAL BILIRUBIN 1.5 mg/dL (0.0-1.5)
--- NOTE | 2017-01-18 05:07 | NUR ---
Significant Event: PATIENT NOT ORIENTED TO PLACE AT THIRD ASSESSMENT. PATIENT FALLING ASLEEP AND NOT ABLE TO DETERMINE FURTHER ORIENTATION. VVS. PATIENT REQUIRED 1-2 L OF O2 PER NC THIS SHIFT. O2 SATS 92-95%. HR 82-85. SBP 113-146, DBP 55-67. HEPARIN 700-800 UNITS/HR RUNNING INTO L) POSTERIOR IV. R) POSTERIOR IV SALINE LOCKED, FLUSHES WELL, SLIGHT BLOOD RETURN. PATIENT 1 ASSIST WITH 4-POINT CANE AND GAIT BELT. PATIENT REPORTS ABDOMINAL PAIN ONLY UPON PALPATION. LUNGS COARSE CRACKLES TO MINIMAL CRACKLES AFTER IV LASIX GIVEN. PATIENT REPOSITIONS INDEPENDENTLY. CURRY CATHETER IN PLACE. VARIOUS AREAS OF BRUISING PRESENT ON RIGHT SIDE. PATIENT HAS BEEN PLEASANT. PATIENT ASKS, "WHAT IS THE PURPOSE OF ALL THIS" WHILE HE APPEARS TO BE SLEEPING. PATIENT ALSO REMOVES NC FREQUENTLY. Follow up: CONTINUE TO MONITOR PER PLAN OF CARE
[2017-01-18 07:56] LABS: HEMATOCRIT 28.6 % (33.0-50.0); HEMOGLOBIN 9.1 g/dL (11.0-16.0)
--- NOTE | 2017-01-18 16:12 | NUR ---
Introduced myself and role of care management to pt's step son Xavier and his and pt's brother. They stated they have been trying to get him more help at home thru [employer] but there is know one available to help and they can not find anyone. He has not been cooking or cleaning much and only likes eating sweets. He has his dog he loves but is like weighs 150#. His son states at this point he is not able to go back home like this. He was not on oxygen before and he is still currently smoking. I did discuss what [facility] was, [facility], and also longterm home care as well. They are familiar with the nursing homes in [facility] and his was at [facility] but has a granddaughter at [facility]. His son is still working and his daughter in law is retired but is busy helping with her 4 year old grand child. At this time will continue to follow.
--- NOTE | 2017-01-18 16:33 | NUR ---
Significant Event:PATIENT A/Ox3. Afebrile. O2 1-2L/NC. LUNG SOUNDS CL/DIM IN TH UPPERS AND FINE CRACKLES TO THE BASES. PATIENT AMBULATED IN HALLS WITH PT AND TOOK PARTIAL SHOWER WITH OT. PATIENT WANTS TO GO HOME. FAMILY IS PUSHING TO HAVE TESTS COMPLETED. CLAIRE, JAZMYN, AND POSSIBLY RUBENRF UP AROUND 5 TO DEVELOP PAIN. POSSIBLE EGD/COLONOSCOPY TOMORROW. Follow up:CONTINUE TO MONITOR.
--- NOTE | 2017-01-19 05:32 | NUR ---
Significant Event: PATIENT ORIENTED X3. 02 94-95%. PATIENT DROPPED TO 87% AT 0130 AND 02 WAS INCREASED FROM 1L TO 2L. PATIENT REMAINS ON 2L AT THIS TIME. HR 85-94; IRREGULAR RHYTHM. BP 109-130 SYSTOLIC, 53-59 DIASTOLIC. PATIENT TACHYPENIC WITH RATES FROM 32-24 BPM. SHALLOW BREATHING. LUNGS FINE TO COARSE CRACKLES. NO EDEMA. IV TO L) FOREARM SALINE LOCKED, FLUSHES WELL GOOD BLOOD RETURN. PATIENT 1 ASSIST WITH FOUR POINT CANE AND GAIT BELT. PATIENT DENIES PAIN. ECCYMOTIC AREAS TO THE R) EYE AND R) KNEE FOLLOWING FALL AT HOME PRIOR TO HOSPITALIZATION. NO BM THIS SHIFT. BOWEL SOUNDS ACTIVE. CURRY CATHETER IN PLACE. DRAINING WELL. PATIENT HAS FLAT AFFECT AND WANTS TO BE HOME. Follow up: CONTINUE TO MONITOR PER PLAN OF CARE.
[2017-01-19 08:15] LABS: HEMATOCRIT 26.5 % (33.0-50.0); HEMOGLOBIN 8.5 g/dL (11.0-16.0)
--- NOTE | 2017-01-19 13:49 | NUR ---
I talked with pt again today and he thinks he can go home but I explained he is on oxygen, still weak, stairs to get into, a dog that could not him over, cooking, etc. He states he is not totally opposed to going somewhere for a short stay until they get help lined or what whatever they are planning. He stated [facility] [place]. I told him we can look in [place] because we would use his medicare benefits and he has medicaid as a supplemental. I did mention facilities in [place] and his was at [facility] so no and [facility] his grandmother was there and had bad memories. I then mentioned S and that [facility] contract or [facility]. He states he will see but those would be the two options. I then called Jeanette with [facility] and faxed initial information.
--- NOTE | 2017-01-19 18:06 | NUR ---
Significant Event: pt up valdovinos with therapy, up in room 1 asst. 02 weaned off. Hernesto dcd at 1730. Pt change to regular diet tonight. ICDs to be placed. Hgb 8.5. No c/o pain, alittle stomach sore this am. To hematest all stools. Follow up:heart cath??
--- NOTE | 2017-01-20 07:20 | NUR ---
Significant Event: PATIENT ORIENTED X3. AFEBRILE. PATIENT HAS HAD MOMENTS OF GOING IN AND OUT OF A-FIB THIS SHIFT. 02 PLACED ON PATIENT AT 1L AT 0300 THIS MORNING. BILATERAL LUNG BASES COARSE CRACKLES. PATIENT DENIES PAIN EXCEPT WHEN ABDOMEN IS PALPATED. Follow up: CARDIOLOGY TO SEE TODAY. CONTINUE TO MONITOR PER PLAN OF CARE.
--- NOTE | 2017-01-20 11:57 | NUR ---
A-NUTRITION F/U HEART CATH PLANNED FOR TODAY; NPO STARTING AT LUNCH LABS: GLU 109, BUN 35, ALB 2.5, AST/ALT ELEVATED, BUT TRENDING DOWN MEDS: PROTONIX DIET RX: NPO. PREVIOUS DIET RX WAS CARDIAC W/ENSURE ENLIVE TID (ERIKA OR VANILLA). PO INTAKE SINCE LAST F/U HAS BEEN 50-100%; AVG IS 81%. THIS IS IMPROVED FROM PREVIOUS 50%. PT REPORTS THAT HE LIKES THE ENSURE ENLIVE, BUT WOULD PREFER CHOCOLATE ONLY. D-AT NUTRITION RISK W/MODERATE MALNUTRITION R/T INDEQUATE ORAL INTAKE AEB NFPE, (+)MST. I-CHANGE ENSURE ENLIVE TID TO ERIKA. ONLY AND WILL RESUME WHEN DIET ADVANCED FROM NPO. M/E-GOAL: PO INTAKE >/=75% FOR DURATION OF ADMIT 1)F/U PO INTAKE AND POC IN 4-6 DAYS 2)ASSIST NEEDED
--- NOTE | 2017-01-20 14:34 | NUR ---
I spoke with daughter in law today and she plans on returning back for the heart cath. I did tell her I spoke with him in [place] regarding the need for a short skilled stay and that he really did not want [facility] or [facility] but I know it has been years ago but I presented the what "ifs" and mentioned the [facility] with [facility] and encouraged her to visit. She stated there was no need but if he can't go home this is what he will need. I did touch base with pt and discussed the need to get stronger and if that is needed then [facility] and [facility] wants to come over and say hi. He stated that would be ok. I did update Jeanette with [facility]. WIll continue to follow.
--- NOTE | 2017-01-20 15:59 | NUR ---
I did speak with [facility] and and updated them that Jeanette was here and son is fine with this but they addis maybe would want [facility] because granddaughter works there. I told them I can call and go from there but really they do not care but would like me to call [facility]. I did call L[facility] and they do have semi private. I will fax information tomorrow.
[2017-01-20 16:29] LABS: PROTIME 11.5 SECONDS (9.8-11.4)
[2017-01-20 16:33] LABS: INR - (THERAPEUTIC) 1.09 (0.92-1.07)
[2017-01-20 16:40] LABS: ALBUMIN 2.9 gm/dL (3.5-5.0); ANION GAP 9.2 (10.0-19.0); CALCIUM 8.6 mg/dL (8.5-10.5); CREATININE 1.4 mg/dL (0.6-1.3); POTASSIUM 4.2 mMol/L (3.7-5.1); TOTAL BILIRUBIN 0.9 mg/dL (0.0-1.5); TOTAL PROTEIN 6.6 g/dL (6.0-8.4)
--- NOTE | 2017-01-20 19:20 | NUR ---
Significant Event: A/Ox3. Forgetful and impulsive. SBP- 110-130s. P 80-110s. Afebrile. Room air at rest and needs 1L with activity at times due to desaturation into low 80s. L)FA IV saline locked. 40mg of lasix IVP given. 825ml of urine out plus one void this shift. Patient has trouble with constipation, drank two prune juices for supper. heart cath canceled. Family, pallative and MD will meet in patients room tomorrow at 1500 to make plan for patients care. Up with SBA-1A/walker.
[2017-01-21 04:03] LABS: BASOPHIL % 0.4 %; EOSINOPHIL # 0.2 K/uL (0.0-0.5); EOSINOPHIL % 2.8 %; HEMATOCRIT 26.3 % (33.0-50.0); HEMOGLOBIN 8.5 g/dL (11.0-16.0); IMMATURE GRANULOCYTE % 0.5 %; LYMPHOCYTE # 1.1 K/uL (0.8-4.0); LYMPHOCYTE % 12.9 %; MCH 28.4 pg (27.0-34.0); MCHC 32.3 gm/dL (32.0-36.5); MONOCYTE # 0.8 K/uL (0.0-1.0); MONOCYTE % 9.3 %; MPV 10.8 fl (9.4-12.4); NEUTROPHIL # (ANC) 6.2 K/uL (1.4-9.0); NEUTROPHIL % 74.1 %; NRBC % 0 /100WBC (0-0.00); RBC 2.99 M/uL (3.50-5.50); RDW-CV 15.7 % (11.9-14.6); WBC 8.3 K/uL (4.0-11.0)
[2017-01-21 04:06] LABS: PLATELET COUNT 177 K/uL (150-450)
[2017-01-21 04:19] LABS: ALBUMIN 2.7 gm/dL (3.5-5.0); ANION GAP 9.8 (10.0-19.0); CALCIUM 8.4 mg/dL (8.5-10.5); CREATININE 1.3 mg/dL (0.6-1.3); PHOSPHORUS 2.9 mg/dL (2.5-4.9); POTASSIUM 3.8 mMol/L (3.7-5.1)
--- NOTE | 2017-01-21 16:44 | NUR ---
I got a call from Lilibeth at [facility] and would like to come up and assess today and plans around 1200. I then spoke with pt and explained they were coming up and he said that would be fine. I then got a call from Sydnee with pallative care and pt still wants to get stronger but no more tests and made a DNR and he is fine with this but family wanting [facility] but will check with the other siblings to make sure. I then called Lilibeth back and explained the plan is [facility] and ready most likely Tuesday. I then got a call back from Lilibeth wanting Tuesday and I explained he is ready and lets plan Tuesday so she will see. Note placed on chart. WIll continue to follow.
--- NOTE | 2017-01-21 19:35 | NUR ---
Significant Event: Alert and oriented. Forgetful and impulsive at times. VSS on room air. REquires 1-2L with activity due to destaturation. L) hand IV saline locked. Meeting with family/MD/anay today. Patient changed to DNR. Plan is to go to [facility] early next week. IV iron infusions orded 1 of 4 given today. No complications. Up SBA/walker. high to low bed.
--- NOTE | 2017-01-22 00:51 | NUR ---
Significant Event:A/Ox3 but forgetful. VSS on RA. Desats with activity but recovers well. Transfers 1 assist with walker. Family aware of move to [facility]. Follow up:Continue with IV Iron replacement.
--- NOTE | 2017-01-22 05:26 | NUR ---
Significant Event: PATIENT CONTIUES TO BE IMPULSIVE AND GETS UP FREQUENTLY TO VOID. HE IS AAO TO TIME AND PLACE AND USES HIS CALL LIGHT ONCE SITTING UP ON EDGE OF BED. HI-LO BED WITH ALARMS ON AT ALL TIMES. UP WITH 1 ASSIST WITH WALKER/GAIT BELT. USES URINAL AND COMMODE. 6 BEATS OF VTACH REPORTED AT 0025. PATIENT ASYMPTOMATIC. IV L) FA IS SL. HE IS TO CONTINUE IRON INFUSIONS x4 DAYS. VSS, PATIENT ON ROOM AIR. PALLATIVE CARE CONTINUES TO WORK WITH PATIENT AND FAMILY FOR D/C PLAN. PATIENT WAS MADE DNR ON 01/21/17. Follow up: PLAN TO CONTINUE IRON INFUSION AND WILL DISCHARGE TO [facility] ON /TUE.
--- NOTE | 2017-01-22 19:51 | NUR ---
Significant Event: Patient is alert/oriented x3, but very forgetful and impulsive. Has not used call light appropriately today for the most part. Vital signs stable, up until around 1800, he was noted to be tachycardic and had increased work of breathing, requiring 3L O2 to keep O2 sats > 90%. Dr. Branham notified and ordered STAT portable CXR, STAT 12-lead EKG, and to re-insert Doshi catheter. 40 mg IV Lasix given already. Patient denies any pain. Worked with PT/OT. Received 2nd dose of Ferrlicit. Follow up: [facility] Tuesday or Tuesday.
[2017-01-23 03:11] LABS: BASOPHIL % 0.1 %; HEMOGLOBIN 9.5 g/dL (11.0-16.0); IMMATURE GRANULOCYTE # 0.1 K/uL (0.0-0.3); IMMATURE GRANULOCYTE % 0.6 %; LYMPHOCYTE # 1.3 K/uL (0.8-4.0); MCH 28.5 pg (27.0-34.0); MCHC 32.8 gm/dL (32.0-36.5); MCV 87.1 fl (83.0-98.0); MONOCYTE # 1.2 K/uL (0.0-1.0); MONOCYTE % 6.6 %; MPV 10.4 fl (9.4-12.4); NEUTROPHIL # (ANC) 15.4 K/uL (1.4-9.0); NEUTROPHIL % 85.7 %; NRBC % 0 /100WBC (0-0.00); RBC 3.33 M/uL (3.50-5.50); RDW-CV 16.2 % (11.9-14.6)
[2017-01-23 03:12] LABS: PLATELET COUNT 239 K/uL (150-450)
[2017-01-23 03:21] LABS: CALCIUM 8.6 mg/dL (8.5-10.5); CREATININE 1.4 mg/dL (0.6-1.3)
[2017-01-23 03:34] LABS: BILIRUBIN URINE NEGATIVE (NEGATIVE); BLOOD URINE 25 /UL (NEGATIVE); COLOR URINE YELLOW (YELLOW); GLUCOSE URINE NEGATIVE (NEGATIVE); KETONE URINE NEGATIVE (NEGATIVE); LEUKOCYTES URINE 100 /UL (NEGATIVE); NITRITE URINE NEGATIVE (NEGATIVE); PROTEIN URINE NEGATIVE (NEGATIVE); TURBIDITY URINE CLEAR (CLEAR); UROBILINOGEN URINE NORMAL (NORMAL)
[2017-01-23 03:47] LABS: BACTERIA URINE NEGATIVE (NEGATIVE); EPITHELIAL URINE 0-2 #/HPF (NEGATIVE); RBC URINE 0-2 #/HPF (NEGATIVE)
--- NOTE | 2017-01-23 06:07 | NUR ---
Significant Event: Patient is alert but forgetful. HR 120s at start of shift with RR in the upper 30's. EKG and chest xray done. Patient developed a fever of 102.[address] Dumas notified. Possible pneumonia. Lasix given IV. IV abx started. Doshi inserted at 1935. 1550 out. WBC 18. Patient calm and cooperative. Follow up:
--- NOTE | 2017-01-23 13:30 | NUR ---
A-NUTRITION F/U 01/21 MADE DNR. PALLIATIVE CARE WORKING W/FAMILY RE: POC. PLAN IS TO D/C TO [facility] ON 01/25 OR 01/26, PER CHART REVIEW. DEVELOPED A FEVER LABS: NA 134, K+ 4.0, GLU 112, BUN 23, TERRAZZO MECHANIC HELPER 1.4 MEDS: LASIX, LEVAQUIN, ZYVOX, MERREM DIET RX: CARDIAC W/ERIKA. ENSURE ENLIVE TID. PO INTAKE BITES AND REFUSALS SINCE LAST F/U. D-AT NUTRITION RISK W/INADEQUATE ORAL INTAKE R/T ALTERED APPETITE AEB INTAKE RECORDS. I-CONTINUE W/ENSURE ENLIVE TID; ENCOURAGE INTAKE M/E-GOAL: PO INTAKE >/=50% BY DISCHARGE 1)F/U PO INTAKE, SUPPLEMENT, AND POC IN 3-5 DAYS 2)ASSIST NEEDED
--- NOTE | 2017-01-23 19:47 | NUR ---
Significant Event: Patient is alert/oriented x3, forgetful at times. Vital signs stable. Doshi in place with 450 mL UOP. Denies any pain. Meropenem and Zyvox D/C'd. Patient might have been diuresed too much, we are to check BP's hourly and call MD if MAP's < 65. Follow up: Continue to monitor per plan of care.
[2017-01-24 04:08] LABS: BASOPHIL % 0.2 %; EOSINOPHIL % 0.3 %; HEMATOCRIT 28.1 % (33.0-50.0); HEMOGLOBIN 9.1 g/dL (11.0-16.0); IMMATURE GRANULOCYTE # 0.1 K/uL (0.0-0.3); IMMATURE GRANULOCYTE % 0.5 %; LYMPHOCYTE # 1.2 K/uL (0.8-4.0); LYMPHOCYTE % 8.1 %; MCH 28.3 pg (27.0-34.0); MCHC 32.4 gm/dL (32.0-36.5); MCV 87.5 fl (83.0-98.0); MONOCYTE # 1.3 K/uL (0.0-1.0); MONOCYTE % 8.7 %; MPV 10.6 fl (9.4-12.4); NEUTROPHIL # (ANC) 12.5 K/uL (1.4-9.0); NEUTROPHIL % 82.2 %; NRBC % 0 /100WBC (0-0.00); PLATELET COUNT 244 K/uL (150-450); RBC 3.21 M/uL (3.50-5.50); RDW-CV 16.4 % (11.9-14.6); WBC 15.3 K/uL (4.0-11.0)
[2017-01-24 04:29] LABS: ALBUMIN 2.6 gm/dL (3.5-5.0); ANION GAP 10.9 (10.0-19.0); CALCIUM 8.3 mg/dL (8.5-10.5); CREATININE 1.4 mg/dL (0.6-1.3); POTASSIUM 3.9 mMol/L (3.7-5.1); TOTAL BILIRUBIN 1.5 mg/dL (0.0-1.5); TOTAL PROTEIN 6.4 g/dL (6.0-8.4)
--- NOTE | 2017-01-24 07:19 | NUR ---
Significant Event: A/O, SBP 103-150s, HR 90s, SR, afebrile, 1 L O2, bowman had 600ml out, 1 assist to bsc, denies pain, poor appetite Follow up: Mother [facility] this week on hospice
--- NOTE | 2017-01-24 15:29 | NUR ---
Significant Event: HAS SLEPT ON AND OFF MOST OF SHIFT. FORGETFUL. UP WITH 1 ASSIST, GB AND WALKER. DENIES PAIN. IV TO LEFT WRIST SL'D. O2 @ 1L NC. TACHYCARDIC 90'S-100'S. AFEBRILE. RR 20'S-30. POOR APPETITE, NEEDS ENCOURAGED TO EAT. CURRY PATENT WITH EMERY URINE. Follow up:
[2017-01-25 03:40] LABS: BASOPHIL % 0.2 %; EOSINOPHIL # 0.2 K/uL (0.0-0.5); EOSINOPHIL % 1.3 %; HEMATOCRIT 27.6 % (33.0-50.0); HEMOGLOBIN 8.6 g/dL (11.0-16.0); IMMATURE GRANULOCYTE % 0.3 %; LYMPHOCYTE # 1.6 K/uL (0.8-4.0); MCH 27.7 pg (27.0-34.0); MCHC 31.2 gm/dL (32.0-36.5); MONOCYTE # 1.1 K/uL (0.0-1.0); MONOCYTE % 8.8 %; MPV 9.7 fl (9.4-12.4); NEUTROPHIL # (ANC) 9.6 K/uL (1.4-9.0); NEUTROPHIL % 76.4 %; NRBC % 0 /100WBC (0-0.00); PLATELET COUNT 250 K/uL (150-450); RDW-CV 16.6 % (11.9-14.6); WBC 12.5 K/uL (4.0-11.0)
[2017-01-25 03:52] LABS: ALBUMIN 2.4 gm/dL (3.5-5.0); ANION GAP 12.9 (10.0-19.0); CALCIUM 8.1 mg/dL (8.5-10.5); CREATININE 1.3 mg/dL (0.6-1.3); PHOSPHORUS 2.9 mg/dL (2.5-4.9); POTASSIUM 3.9 mMol/L (3.7-5.1)
--- NOTE | 2017-01-25 04:43 | NUR ---
Patient A/Ox3 but forgetful. VSS on 1L NC. One assist. Lungs clear. Bowel sounds present. Lt forearm IV saline locked. No pain. Doshi 350ml out. Decreased appetite. Possible to [facility] on hospice today.
--- NOTE | 2017-01-25 13:51 | NUR ---
I did talk with Lilibeth this am asking if they can take today and she states she spoke with everyone and just can't today but can tomorrow at 1030. I did update the nurse and also pt himself and he agrees. WIll continue to follow.
--- NOTE | 2017-01-25 16:19 | NUR ---
I did talk with Jaydon and his and explained Mother Daniela will accept tomorrow at 1030 and they agree to the plan. I encouarged her to speak with Lilibeth on all what they need to bring.
--- NOTE | 2017-01-25 17:22 | NUR ---
Significant Event:Patient has been resting in bed, has refused to get up in chair. Ate some breakfast, but no lunch. Denies pain. Remains on 1L O2. Glenda segura'marty this afternoon at 1715. Patient remains alert and orientated. Follow up:Mother Daniela tomorrow at 1030
--- NOTE | 2017-01-26 03:42 | NUR ---
Patient is alert and oriented, but can be confused. He has rested in bed all shift. Only drank his ensure for supper, one void. On 1L O2, tachypnic. Saline locked. Will be going to [place] today.
--- NOTE | 2017-01-26 10:00 | NUR ---
I did touch base with nursing and DR Morton will be up to do orders. I spoke with Lilibeth and time changed to 1100. I discussed with pt and he is ready to go, family is aware I spoke with them yesterday afternoon. Orders faxed and nurse to call report.
--- NOTE | 2017-01-26 11:07 | NUR ---
D:Patient is alert and orientated. No skin issures. Is DNR. Patient is 1 assist for transfers. Glenda segura'd yesterday, voiding per urinal, incont at times. Patient fell at home, has not fallen here. Patient reports that he is tired and is ready to . O2 on at 1L. Resp rate is in the 30's most of the time, even at rest. Appetite poor, taking mostly only Ensure. P:To Mother Suarez on Pallative care
--- NOTE | 2017-01-26 13:35 | NUR ---
D:Patient dc'd to [facility] per wheel chair with O2. Transfer packet sent with driver examiner. Patient is alert and oreintated. Has personal belongings. Discharged at 1120.
== END 2017-01-26 11:20 | DRG 280 ==
LOC: GMED 18:21 → GPCU 21:54
PROVIDERS: Emergency Medicine; Family Medicine; Internal Medicine; Internal Medicine Interventional Cardiology; Physician Assistant; ADMIT Internal Medicine
PROC: B246ZZZ Ultrasonography of Right and Left Heart (ICD-10-PCS; principal; 2017-01-16)
PROC: 30233N1 Transfusion of Nonautologous Red Blood Cells into Peripheral Vein, Percutaneous Approach (ICD-10-PCS; 2017-01-17)
DX: I50.23 Acute on chronic systolic (congestive) heart failure (principal); J96.21 Acute and chronic respiratory failure with hypoxia; I21.4 Non-ST elevation (NSTEMI) myocardial infarction; N17.9 Acute kidney failure, unspecified; E44.0 Moderate protein-calorie malnutrition; K76.1 Chronic passive congestion of liver; J84.10 Pulmonary fibrosis, unspecified; I24.9 Acute ischemic heart disease, unspecified; N39.0 Urinary tract infection, site not specified; I27.2 Other secondary pulmonary hypertension; Z51.5 Encounter for palliative care; D50.9 Iron deficiency anemia, unspecified; J44.9 Chronic obstructive pulmonary disease, unspecified; N40.0 Benign prostatic hyperplasia without lower urinary tract symptoms; F80.81 Childhood onset fluency disorder; I44.7 Left bundle-branch block, unspecified; Z66 Do not resuscitate; Z87.891 Personal history of nicotine dependence; I48.91 Unspecified atrial fibrillation; I51.7 Cardiomegaly
CPT/HCPCS: J0171; J1200; J1644; J1720; J1940; J1956; J2020; J2185; J2405; J2916; J7030; J7040; J7050; P9016